=== PATIENT | female | born 1980 | race Caucasian/White ===

== ENCOUNTER → 2021-04-04 11:22 | Outpatient (BNVA) | payer OTHER, SELFPAY | PROVIDERS: Visit Provider Nurse Practitioner Family | DX: Z20.822 Contact with and (suspected) exposure to COVID-19 (principal) | CPT/HCPCS: 87635 ==

== ENCOUNTER → 2023-08-14 11:25 | Outpatient (BNVA) | payer OTHER, SELFPAY | PROVIDERS: Visit Provider Nurse Practitioner Family | DX: J02.9 Acute pharyngitis, unspecified (principal); R09.82 Postnasal drip | CPT/HCPCS: 87071; 87880 ==

== ENCOUNTER 2024-11-25 13:38 | Emergency (ER) | payer OTHER, SELFPAY ==
[2024-11-25] VITALS (15 sets, daily range): BP systolic 158–184; BP diastolic 98–136; PULSE 78–100; RESP 18; TEMP 36.9; O2SAT 94–99; BMI 26.5
--- NOTE | 2024-11-25 13:46 | CT_ITS ---
WS: [id number] CT FACIAL BONES with contrast HISTORY: R dental/facial infection TECHNIQUE: Images obtained from the supraorbital location through the mandible. Soft tissue and bone windows are reviewed. Coronal and sagittal reformats have also been submitted. DLP: 572.[address] scans at [facility] use at least one of these dose optimization techniques: automated exposure control; mA and/or kV adjustment per patient size (includes targeted exams where dose is matched to clinical indication); or iterative reconstruction. COMPARISON: None available. Contrast: Omnipaque 350; 100 mL. Large amount of soft tissue edema centered along the anterior upper lip. There is soft tissue infiltration through the subcutaneous fat over the upper lip. Edema crosses the midline but slightly greater on the RIGHT. Subperiosteal abscess is identified along the RIGHT maxilla. Abscess does extend slightly to the midline. The subperiosteal abscess measures 2.5 x 1.0 cm. Patient does have underlying dental caries at the site of the subperiosteal abscess. There are additional areas of dental caries also. No obstruction of the airway. Very small bilateral air-fluid levels in the maxillary sinuses. Orbits and globes are normal. CT/CT facial bones w con [id number] IMPRESSION: 1. RIGHT maxilla subperiosteal abscess measures 2.5 x 1.0 cm. Associated denta l caries at the site of the abscess. 2. Additional subcutaneous edema along the upper lip extends bilateral. 3. Additional dental caries.
--- NOTE | 2024-11-25 13:47 | ED_ITS ---
HPI - Dental/Oral 2 General: Chief complaint: Dental/Oral Stated complaint: mouth abcess - blooding Time Seen by Provider: 11/25/24 13:41 Source: patient Mode of arrival: ambulatory Limitations: no limitations History of Present Illness: Patient is a 44-year-old female presents to ED today with complaint of pain and swelling involving the right side of her face. Patient states she has multiple bad teeth and has had issues with infections and abscesses in the past. She states her teeth have been bothering her over the past few days and woke up this morning with swelling to the right side of her face. History provided later during her stay was that she was seen at [facility] earlier this morning. She states they did not do blood work or imaging. She was reportedly discharged home on Augmentin and Hydrocodone-has not filled these yet. Apparently she came here due to worsening symptoms and now her nose is bleeding. States she does have a history of epistaxis. Onset (ago): day(s) Duration: constant Severity: severe Relieving factors: nothing Exacerbating factors: nothing Context: history of dental caries and poor dental care Associated symptoms: Denies fever(s) or odynophagia Treatment prior to arrival: none Related Data Home Medications ?Medication ?Instructions ?Recorded ?Confirmed acetaminophen-caffeine 500 mg-65 2 tab PO Q6H PRN Pain 11/25/24 11/25/24 mg tablet naproxen sodium 220 mg tablet 220 mg PO Q12H PRN Pain 11/25/24 11/25/24 (Aleve) Allergies Allergy/AdvReac Type Severity Reaction Status Date / Time doxycycline Allergy Mild ADR-Vomitin Verified 12/27/22 14:25 g Review of Systems 2 Const: Denies: fever(s), chills, body aches, fatigue or malaise Eyes: Denies: change in vision, blurry vision, photophobia, floaters or seeing flashes ENMT: Reports: mouth pain, swelling of lips/tongue, dental pain, epistaxis and sinus pain; Denies: throat pain or odynophagia Card: Denies: chest pain Resp: Denies: dyspnea GI: Denies: nausea or vomiting Musc: Denies: neck pain Neuro: Denies: headache(s) PFSH ED 2 PFSH: Social History Smoking and tobacco/nicotine status: current every day tobacco/nicotine user Physical Exam 2 Const: COMMON NORMALS: patient oriented x3, no limitations, alert and well nourished GENERAL APPEARANCE: in distress (due to facial/dental pain) O RIENTATION/CONSCIOUSNESS: Yes awake, Yes oriented to person, Yes oriented to place and Yes oriented to time HENMT: COMMON NORMALS: normocephalic and atraumatic HEAD & SCALP: normal to inspection, normocephalic and atraumatic FACE & SINUS: face symmetric, erythema and edema FACE & SINUS IMAGES: 1. erythema/edema/pain NOSE: Other nasal findings present (dried blood to nares-states it is common for her to have nosebleeds) MOUTH: lip abnormal (upper lip edema) TEETH & GINGIVA: Yes caries, Yes poor dentition and Yes other (significant widespread dental disease) THROAT: posterior oropharynx normal and tonsils normal Neck/C-Spine: COMMON NORMALS: no lymphadenopathy GENERAL: No anterior neck swelling and No submandibular swelling Resp: COMMON NORMALS: normal respiratory effort and clear to auscultation bilaterally AUSCULTATION: clear to auscultation bilaterally Cardio: COMMON NORMALS: regular rate and regular rhythm RATE: regular rate RHYTHM: regular rhythm Neuro: COMMON NORMALS: patient oriented x3 SENSORIUM/ORIENTATION: Yes alert, Yes oriented to person, Yes oriented to place and Yes oriented to time Course 2 Consultations: Consultation #1: Dr. Blackwood ENT-would consult on patient upon arrival Consultation #2: Dr. Bharat [facility] ED physician accepting transfer Vital Signs: Vital signs: Vital Signs Temperature 98.4 F 11/25/24 13:40 Pulse Rate 100 11/25/24 13:40 Respiratory Rate 18 11/25/24 14:04 Blood Pressure 158/136 11/25/24 16:36 Pulse Oximetry 96 11/25/24 16:36 Oxygen Delivery Me thod Room Air 11/25/24 13:40 MDM - Dental/Oral Medical Decision Making Patient here with cellulitis and edema involving the right side of her face as well as a right maxilla subperiosteal abscess. She will be transferred to [facility] ED for ENT evaluation and drainage. Medical Records I reviewed the patient's medical records. Lab Data I reviewed the patient's lab results. 11/25/24 14:06 11/25/24 14:[address] 11/25/24 13:46 IMPRESSION: 1. RIGHT maxilla subperiosteal abscess measures 2.5 x 1.0 cm. Associated dental caries at the site of the abscess. 2. Additional subcutaneous edema along the upper lip extends bilateral. 3. Additional dental caries. Laboratory Results WBC 11.08 10^3/uL (3.29-11.43) 11/25/24 14:06 RBC 4.84 10^6/uL (3.85-5.65) 11/25/24 14:06 Hgb 11.70 g/dL (11.27-16.99) 11/25/24 14:06 Hct 39.4 % (36-47) 11/25/24 14:06 MCV 81.4 fl (85-98) L 11/25/24 14:06 MCH 24.2 pg (27-33) L 11/25/24 14:06 MCHC 29.7 g/dL (30-55) L 11/25/24 14:06 RDW 14.5 % (12.1-15.1) 11/25/24 14:06 Plt Count 277 10^3/cmm (157-399) 11/25/24 14:06 MPV 10.7 fL (7.4-10.4) H 11/25/24 14:06 Neut % (Auto) 75.9 % 11/25/24 14:06 Lymph % (Auto) 11.1 % 11/25/24 14:06 [place] % (Auto) 10.2 % 11/25/24 14:06 Eos % (Auto) 2.0 % 11/25/24 14:06 Baso % (Auto) 0.4 % 11/25/24 14:06 Neut # (Auto) 8.42 10^3/uL (1.8-7.7) H 11/25/24 14:06 Lymph # (Auto) 1.2 10^3/uL (0.8-4.8) 11/25/24 14:06 [place] # (Auto) 1.1 10^3/uL (0.2-0.9) H 11/25/24 14:06 Eos # (Auto) 0.2 10^3/uL (0.0-0.8) 11/25/24 14:06 Baso # (Auto) 0.0 10^3/uL (0.0-0.1) 11/25/24 14:06 Nucleated RBC % (auto) 0 % 11/25/24 14:06 Nucleated RBCs # 0.0 /100WBC 11/25/24 14:06 Sodium 139 mmol/L (136-145) 11/25/24 14:06 Potassium 4.1 mmol/L (3.5-5.1) 11/25/24 14:06 Chloride 105 mmol/L (98-107) 11/25/24 14:06 Carbon Dioxide 22 mmol/L (22-29) 11/25/24 14:06 Anion Gap 16.1 (5-19) 11/25/24 14:06 BUN 7 mg/dL (6-20) 11/25/24 14:06 Creatinine 0.7 mg/dL (0.5-0.9) 11/25/24 14:06 GFR Calculation 90.9 mL/min (90-130) 11/25/24 14:06 Glucose 123 mg/dL (65-115) H 11/25/24 14:06 Calculated Osmolality 287 mOsm/kg (285-295) 11/25/24 14:06 Calcium 8.7 mg/dL (8.5-10.5) 11/25/24 14:06 Total Bilirubin 0.4 mg/dL (0.15-1.2) 11/25/24 14:06 AST 16 U/L (0-32) 11/25/24 14:06 ALT 10 U/L (0-33) 11/25/24 14:06 Alkaline Phosphatase 85 U/L (35-105) 11/25/24 14:06 Total Protein 7.4 g/dL (6.6-8.7) 11/25/24 14:06 Albumin 4.2 g/dL (3.5-5.2) 11/25/24 14:06 Globulin 3.2 g/dL (1.3-4.6) 11/25/24 14:06 HCG, Qual Negative (Negative) 11/25/24 14:06 All radiology interpretation(s) finalized by discharge Discharge Plan Discharge Patient Disposition: Xfer Short-Term Hosp Clinical Impression: Abscess of maxilla, Facial cellulitis Condition: Stable Prescriptions: No Action Excedrin Aspirin Free 500-65 mg Tablet 2 tab PO Q6H PRN (Reason: Pain) naproxen sodium [Aleve] 220 mg Tablet 220 mg PO Q12H PRN (Reason: Pain) Referrals: OUT OF AREA PROVIDERS, [Non-Staff] - Print Language: Canadian Coding Level of Care Code ED Beef Specialist for Za Allan
--- NOTE | 2024-11-25 14:03 | PC.PHAR ---
Patient states she went to [facility] in [place] and they gave her Hydrrocodone .
[2024-11-25] MEDS: ondansetron 2 mg/ML SDV 2 mL 4 MG IVP (14:04)
[2024-11-25] MEDS: morphine 4 mg/mL SDV 1 mL IVP ×2 (14:04→17:02)
[2024-11-25] MEDS: ampicillin-sulbactam 3 GM in sodium chloride 0.9% (plus) 50 ML IV (14:04)
[2024-11-25 14:12] LABS: Basophils % 0.4 %; Eosinophils # 0.2 10^3/uL (0.0-0.8); Hematocrit 39.4 % (36-47); Lymphocytes # 1.2 10^3/uL (0.8-4.8); Lymphocytes % 11.1 %; Mean Corpuscular HGB Conc 29.7 g/dL (30-55); Mean Corpuscular Hemoglobin 24.2 pg (27-33); Mean Corpuscular Volume 81.4 fl (85-98); Mean Platelet Volume 10.7 fL (7.4-10.4); Monocytes # 1.1 10^3/uL (0.2-0.9); Monocytes % 10.2 %; Neutrophils # 8.42 10^3/uL (1.8-7.7); Neutrophils % 75.9 %; Nucleated Red Blood Cells % 0 %; Platelet Count 277 10^3/cmm (157-399); Red Blood Count 4.84 10^6/uL (3.85-5.65); Red Cell Distribution Width 14.5 % (12.1-15.1); White Blood Count 11.08 10^3/uL (3.29-11.43)
[2024-11-25 14:25] LABS: HCG, Serum Qual Negative (Negative)
[2024-11-25 14:31] LABS: Alanine Aminotransferase 10 U/L (0-33); Albumin Level 4.2 g/dL (3.5-5.2); Alkaline Phosphatase 85 U/L (35-105); Anion Gap 16.1 (5-19); Aspartate Amino Transferase 16 U/L (0-32); Blood Urea Nitrogen 7 mg/dL (6-20); Calcium 8.7 mg/dL (8.5-10.5); Carbon Dioxide 22 mmol/L (22-29); Chloride 105 mmol/L (98-107); Creatinine Clr Calc Pharmacy 94.9662; Globulin 3.2 g/dL (1.3-4.6); Glomerular Filtration Rate 90.9 mL/min (90-130); Glucose 123 mg/dL (65-115); Osmolality Calculated 287 mOsm/kg (285-295); Potassium 4.1 mmol/L (3.5-5.1); Sodium 139 mmol/L (136-145); Total Bilirubin 0.4 mg/dL (0.15-1.2); Total Protein 7.4 g/dL (6.6-8.7)
== END 2024-11-25 20:52 | disposition short-term general hospital (02) ==
PROVIDERS: Emergency Provider Physician Assistant
DX: M27.2 Inflammatory conditions of jaws (principal); L03.211 Cellulitis of face
CPT/HCPCS: 36415; 70487; 80053; 84703; 85025; 87040; 96374; 96375; 96376; 99285; J0295; J2270; J2405

== ENCOUNTER 2025-05-01 12:27 | Outpatient (CLI) | payer MEDICAID, SELFPAY ==
--- NOTE | 2025-05-01 12:32 | MM_ITS ---
WS: [id number] BILATERAL 3D TOMOSYNTHESIS DIGITAL SCREENING MAMMOGRAPHY WITH CAD CLINICAL INFORMATION: SCREENING HISTORY: Screening mammogram. No current complaints. COMPARISON: Baseline TECHNIQUE: Bilateral CC and MLO views. FINDINGS: Scattered fibroglandular densities bilaterally A few ovoid nodules outer RIGHT breast may represent breast cysts in a patient this age but indeterminant and no prior comparisons. Recommend further evaluation with ultrasound. Unremarkable LEFT breast. MM/MM scr BI tomosynthesis [id number] IMPRESSION: DENSITY: There are scattered areas of fibroglandular density. BI-RADS: 0 - Incomplete: Need additional imaging evaluation. FOLLOW UP: Need Additional Imaging Recommend RIGHT breast ultrasound outer RIGHT breast
== END 2025-05-01 12:28 | disposition home or self-care (01) ==
PROVIDERS: PCP Nurse Practitioner Family; Visit Provider Nurse Practitioner Family
DX: Z12.31 Encounter for screening mammogram for malignant neoplasm of breast (principal); N63.10 Unspecified lump in the right breast, unspecified quadrant
CPT/HCPCS: 77063; 77067